=== PATIENT | female | born 1940 | race Hispanic/Latino ===

== ENCOUNTER 2017-02-22 12:03 | Outpatient (CLI) | payer MEDICARE ==
[2017-02-22 14:10] LABS: #Basophils 0.2 thou/uL (0.0-0.2); #Eosinphils 0.6 thou/uL (0.0-0.7); #Lymphocytes 2.4 thou/uL (1.20-3.40); #Monocytes 0.4 thou/uL (0.11-0.59); #Neutrophils 5.1 thou/uL (1.40-6.50); %Eosinophils 7.5 % (0.0-10.0); %Lymphocytes 27.2 % (21.0-51.0); %Monocytes 4.7 % (0.0-10.0); %Neutrophils 58.6 % (42.0-75.0); Hemoglobin 12.8 g/dL (12.0-16.0); Mean Corpuscular HGB CONC 33.6 g/dL (32.0-36.0); Mean Corpuscular Hemoglobin 31.4 pg (27.0-31.0); Mean Corpuscular Volume 93.4 fl (81.0-99.0); Platelet Count 297 thou/uL (130-400); RBC Distribution Width 11.8 % (11.5-14.5); Red Blood Cell (RBC) Count 4.08 mill/uL (4.20-5.40); White Blood Cell (WBC) Count 8.7 thou/uL (4.8-10.8)
[2017-02-22 14:19] LABS: Hemoglobin A1c 6.9 % (4.0-6.0)
[2017-02-22 14:23] LABS: ALT (SGPT) 22 U/L (8-55); AST (SGOT) 18 U/L (5-34); Albumin 4.1 g/dL (3.4-4.8); Alkaline Phosphatase 53 U/L (40-150); Anion Gap 16 mmol/L (10-20); BUN (Urea Nitrogen) 18 mg/dL (9.8-20.1); Bilirubin, Total 0.4 mg/dL (0.2-1.2); Calc. Creatinine Clearance 0 mL/min (70-130); Calcium 9.9 mg/dL (7.8-10.44); Carbon Dioxide 26 mmol/L (23-31); Cardiac Risk 3.6 (Less than 4.5); Chloride 100 mmol/L (98-107); Cholesterol 148 mg/dl (< 200 Desired); Estimated GFR-MDRD 57; Globulin 3.1 g/dL (2.4-3.5); Glucose 149 mg/dL (83-110); HDL Cholesterol 41 mg/dL (>60 Neg Risk); LDL Cholesterol, Calculated 61 mg/dL; Potassium 3.9 mmol/L (3.5-5.1); Protein, Total 7.2 g/dL (6.0-8.3); Sodium 138 mmol/L (136-145); Triglycerides 228 mg/dL (Less than 150)
[2017-02-22 19:42] LABS: Bilirubin Negative (Negative); Blood, Urine Negative (Negative); Clarity Clear (Clear); Glucose, Urine (Dipstick) Negative (Negative); Leukocyte Negative (Negative); Nitrite Negative (Negative); Protein, Urine (Dipstick) Negative (Neg-Trace); Specific Gravity, Urine 1.015 (1.005-1.030); Urobilinogen 0.2 mg/dL (0.2-1.0)
[2017-02-23 17:55] LABS: Creatinine, Urine 97.38 mg/dL (47-110); Microalbumin Urine 1.5 mg/dL (0.5-50.0); Microalbumin/Creat Ratio 15.4 mg/g (Less than 30)
== END 2017-02-22 12:04 | disposition home or self-care (01) ==
LOC: NAVSJIPCSP 12:03
PROVIDERS: ATTEND Internal Medicine
DX: Z79.899 Other long term (current) drug therapy (principal)
CPT/HCPCS: 36415; 80053; 80061; 81003; 82043; 83036; 84443; 85025

== ENCOUNTER 2019-11-19 10:15 | Outpatient (CLI) | payer MEDICARE, OTHER ==
--- NOTE | 2019-11-19 12:59 | CT ---
ABDOMEN AND PELVIC CT SCAN WITH IV CONTRAST: HISTORY: Constipation, anorexia. FINDINGS: The lung bases appear clear. The liver contains several hypodensities too small to definitively holli acterize up to 0.9 cm. The gallbladder demonstrates o evidence for gallstones or wall thickening or pericholecystic fluid. The pancreas is somewhat thinned but otherwise unremarkable. There is no gaby dence for a spleen, presumably prior splenectomy. Adrenal glands are unremarkable. Several small bi lateral renal hypodensities, too small to characterize but statistically small cysts. No renal calcu casandra or acute obstruction. Visualized uterus and adnexa are unremarkable with a probable 1.3 cm le ft ovarian cyst. There is scattered solid fecal material throughout the colon. No CT evidence for a cute appendicitis. No abscess, adenopathy, or abnormal fluid collection within the abdomen or pelvis . IMPRESSION: No significant acute process in the abdomen or pelvis. Evidence for status post splenectomy. Eviden ce for multiple liver and renal hypodensities, statistically small cysts. Small left ovarian cyst. No evidence for other significant acute process. POS: RRE
== END 2019-11-19 10:16 | disposition home or self-care (01) ==
LOC: NAV CT 10:15
PROVIDERS: ATTEND Internal Medicine
DX: K59.01 Slow transit constipation (principal); R63.0 Anorexia; N83.202 Unspecified ovarian cyst, left side; R93.2 Abnormal findings on diagnostic imaging of liver and biliary tract; R93.421 Abnormal radiologic findings on diagnostic imaging of right kidney; R93.422 Abnormal radiologic findings on diagnostic imaging of left kidney
CPT/HCPCS: 74177